=== PATIENT | female | born 1960 | race Caucasian/White ===

== ENCOUNTER → 2021-05-05 | Outpatient (CLI) | payer OTHER | LOC: M.CT 09:02 | PROVIDERS: ATTEND Nurse Practitioner Family | DX: Z13.6 Encounter for screening for cardiovascular disorders (principal) ==

== ENCOUNTER → 2021-05-05 | Outpatient (CLI) | payer OTHER ==
--- NOTE | 2021-05-08 12:45 | TST ---
[place] [address] TREADMILL STRESS TEST Name: ERIKA CLARK Room: [facility]#: [id number] Admission: 05/05/21 Attend Phys: CELESTE LECHUGA Discharge: Date of : 64 Date of Service: 05/05/21 1521 Report #: [id number] THIS REPORT FOR: cc: CELESTE LEON NP, KATHERINE J. NP Blick, David R. MD [facility] ~ DOC #: [id number] cc: ANGELICA TRAYLOR MD [facility] DATE OF SERVICE: 05/05/2021 EXERCISE STRESS TEST INDICATIONS: Exercise stress test was requested in this patient with a history of chest pain. PROCEDURE: The patient was exercised on a Ilia protocol treadmill test. RESULTS: The patient had a pretest heart rate of 66, blood pressure 126/97. The patient was able to exercise for a total of 6 minutes achieving a peak heart rate of 154 and a peak blood pressure 194/84. In recovery, the patient had heart rate of 87, blood pressure 131/92. The patient denied chest pain, but exercise was terminated secondary to fatigue. The patient's resting ECG showed a normal sinus rhythm with RSR prime noted in lead V1. With exercise, there were occasional PACs noted. The patient was noted to have 0.[address]-segment depression in lead 2, 3, aVF as well as V5 and V6 with exercise. The ST-segment changes resolved 6 minutes to recovery. IMPRESSION: 1. Exercise capacity, average. 2. Clinical response, nonischemic. 3. ECG response, indeterminate. Indeterminate exercise stress test for predicting future cardiac events secondary to equivocal ST-segment changes noted. If clinically indicated, I would consider stress testing with cardiac imaging to improve the specificity of stress testing to rule out cardiac ischemia. Del Benson MD [facility] SARAH/ROBIN/[place] [address] TREADMILL STRESS TEST Name: ERIKA CLARK Room: [facility]#: [id number] Admission: 05/05/21 Attend Phys: CELESTE LECHUGA Discharge: Date of : 64 Date of Service: 05/05/211520 Report #: [id number] <ELECTRONICALLY SIGNED> By: Del Benson MD, [facility] 05/08/21 1245 1521 22 Del Benson MD, FACC /nt
== END ==
LOC: M.CRD 09:13
PROVIDERS: ATTEND Nurse Practitioner Family
DX: R07.9 Chest pain, unspecified (principal)